=== PATIENT | female | born 1960 | race Native Hawaiian/Other Pacific Islander ===

== ENCOUNTER 2019-10-13 19:13 | Inpatient (IN) | payer MEDICARE, MEDICAID ==
[~2019-10-13] VITALS: Ht 165.1 cm; Wt 96.2 kg
[~2019-10-13 19:13] MED LIST: AML5T PO; APIX5TAB PO; ASPI81CH43 PO; CALC667C PO; CARV6.2551 PO; CINA30TA2 PO; GLIP5TAB12 PO; HYDR-4296 PO; SEVE800T8 PO
[2019-10-13] MEDS ORDERED: SUCCINYLCHOLINE CHLORIDE 20 MG/ML 10ML VIAL IV ONE (19:30)
[2019-10-13] MEDS ORDERED: EPINEPHrine HCL 1 MG/1 ML AMP ONE (19:33)
[2019-10-13] MEDS ORDERED: ATROPINE SULFATE 1 MG/1 ML VIAL ONE (19:33)
[2019-10-13] MEDS ORDERED: MIDAZOLAM DRIP 50 mg/50mL 50 ML IV ONE (19:40)
[2019-10-13] MEDS ORDERED: ATROPINE SULF 1 MG/10ml SYR IV ONE (19:45)
[2019-10-13] MEDS ORDERED: VANCOMYCIN 1GM/250ML 250 ML IV ONE (19:45)
[2019-10-13] MEDS ORDERED: EPINEPHrine HCL 1 MG/10 ML SYRG IV ONE (19:45)
[2019-10-13] MEDS ORDERED: cefTRIAXone SOD 1,000 MG VL IM ONE (19:45)
[2019-10-13] MEDS: MIDAZOLAM DRIP 50 mg/50mL 50 ML IV SCH (19:48)
[2019-10-13 19:52] LABS: Basophils # (auto) 0.1 10 ^3/uL (0-0.2); Basophils % (auto) 0.3 % (0.0-2.0); Eosinophils # (auto) 0.1 10 ^3/uL (0-0.8); Eosinophils % (auto) 0.7 % (0.0-7.0); Hemoglobin 8.4 g/dL (12.2-16.2); Lymphocytes # (auto) 4.1 10 ^3/uL (0.4-5.4); Lymphocytes % (auto) 20.4 % (10.0-50.0)
[2019-10-13 19:54] LABS: Mean Corpuscular Hemoglobin 30.1 pg (28.0-32.0); Mean Corpuscular Hgb Conc. 31.1 g/dL (32.0-36.0); Mean Corpuscular Volume 96.7 fL (80.0-100.0); Monocytes # (auto) 0.9 10 ^3/uL (0-1.3); Monocytes % (auto) 4.6 % (0.0-12.0); Neutrophils # (auto) 14.8 10 ^3/uL (1.6-8.6); Platelet Count (auto) 282 10^3/uL (140-450); Red Blood Cells 2.79 10^6/uL (4.0-5.20); Red Cell Distribution Width 14.1 % (11.8-14.3)
[2019-10-13 20:00] LABS: Albumin 2.1 g/dL (3.4-5.0); INR 1.11 (0.9-1.15); Magnesium 2.3 mg/dL (1.6-2.6); Partial Thromboplastin Time 28.3 sec (23.64-32.05)
[2019-10-13] MEDS ORDERED: cefTRIAXone 1GM/50ML D5W 50 ML IV ONE (20:00)
[2019-10-13] MEDS: NOREPINEPHRINE 8 MG/250ML KIT 250 ML IV SCH ×2 (20:03→22:38)
[2019-10-13 20:04] LABS: Lactic Acid w/Reflex 9.8 mmol/L (0.4-2.0)
[2019-10-13 20:06] LABS: BUN/Creatinine Ratio 4.5; Bilirubin, Total 0.6 mg/dL (0.2-1.0); Total Protein 7.2 g/dL (6.4-8.2)
[2019-10-13] MEDS ORDERED: NOREPINEPHRINE 8 MG/250ML KIT 250 ML IV ONE (20:08)
[2019-10-13 20:16] LABS: Potassium 5.6 mmol/L (3.5-5.1)
[2019-10-13] MEDS ORDERED: ACETAMINOPHEN 650 MG RECT SUPP PR ONE (21:00)
[2019-10-13] MEDS: DOPamine 1600MCG/ML D5W 250 ML IV SCH (21:04)
[2019-10-13 21:56] VITALS: BP 113/34
[2019-10-13] MEDS ORDERED: SODIUM CHLORIDE 0.9% 1,000 ML IV SCH (23:17)
[2019-10-13 23:27] LABS: Urine Bacteria MANY /hpf (None Seen); Urine WBC TNTC /hpf (0 - 5)
[2019-10-13 23:28] LABS: Urine Mucus FEW (None Seen)
[2019-10-13 23:29] LABS: Urine Specific Gravity 1.012 (1.001-1.035)
[2019-10-13] MEDS ORDERED: NITROGLYCERIN 0.4 MG SL TAB SL PRN (23:30)
[2019-10-13] MEDS ORDERED: DEXTROSE (50%) 50ML SYRG IV ONE (23:30)
[2019-10-13] MEDS ORDERED: VANCOMYCIN PER PHARMACY 0 MG IV SCH (23:30)
[2019-10-13] MEDS ORDERED: MORPHINE SULF INJ 2 MG/ML SYRINGE 1ML IV PRN (23:30)
[2019-10-13] MEDS ORDERED: CALCIUM GLUC 4.65meq/50ml D5AE 50 ML IV ONE (23:30)
[2019-10-13] MEDS ORDERED: InsuLIN REG 1unit/0.01ml Soln (100units/ml) IV ONE (23:30)
[2019-10-13] MEDS ORDERED: SODIUM BICARBONATE 8.4 % INJ 50ML VIAL IV ONE (23:30)
[2019-10-13] MEDS ORDERED: PIPERACILLIN-TAZOB 2.25GM 0.75 GM in D5W 5% 50 ML IV SCH (23:30)
[2019-10-13] MEDS ORDERED: DEXTROSE (50%) 50ML SYRG IV PRN (23:30)
[2019-10-13] MEDS ORDERED: ONDANSETRON HCL 4 MG/2 ML VIAL IV PRN (23:30)
[2019-10-13] MEDS ORDERED: SODIUM ZIRCONIUM CYCL 10 GM PAK PO ONE (23:30)
[2019-10-13] MEDS ORDERED: ACETAMINOPHEN 325 MG TAB PO PRN (23:30)
[2019-10-13 23:31] LABS: Urine Blood 1+ /uL (Negative)
[2019-10-13 23:51] VITALS: BP 132/54
[2019-10-14] VITALS (65 sets, daily range): BP systolic 72–151; BP diastolic 21–66
[2019-10-14 01:04] LABS: CRP High Sensitivity 7.36 mg/dL (< 0.3)
[2019-10-14] MEDS: ACCU-CHEK COMFORT CURVE STRIP VI SCH ×5 (03:51→23:01)
[2019-10-14] MEDS ORDERED: SODIUM CHLORIDE 0.9% 1,000 ML IV ONE (04:15)
[2019-10-14 05:57] LABS: Basophils # (auto) 0 10 ^3/uL (0-0.2); Basophils % (auto) 0.3 % (0.0-2.0); Eosinophils # (auto) 0 10 ^3/uL (0-0.8); Eosinophils % (auto) 0.2 % (0.0-7.0); Hematocrit 27.1 % (36.0-46.0); Hemoglobin 8.8 g/dL (12.2-16.2); Lymphocytes # (auto) 1.1 10 ^3/uL (0.4-5.4); Lymphocytes % (auto) 9.3 % (10.0-50.0); Mean Corpuscular Hemoglobin 30.9 pg (28.0-32.0); Mean Corpuscular Hgb Conc. 32.4 g/dL (32.0-36.0); Mean Corpuscular Volume 95.5 fL (80.0-100.0); Monocytes # (auto) 0.9 10 ^3/uL (0-1.3); Monocytes % (auto) 7.9 % (0.0-12.0); Neutrophils # (auto) 9.8 10 ^3/uL (1.6-8.6); Neutrophils % (auto) 82.3 % (37.0-80.0); Platelet Count (auto) 222 10^3/uL (140-450); Red Blood Cells 2.84 10^6/uL (4.0-5.20); Red Cell Distribution Width 14.1 % (11.8-14.3); White Blood Cell 11.9 10^3/uL (4.4-10.8)
[2019-10-14] MEDS ORDERED: ALBUTEROL SULF HFA 90MCG INH 200DOSE IN SCH (06:00)
[2019-10-14 06:03] LABS: Albumin 2.2 g/dL (3.4-5.0); Calcium 8.1 mg/dL (8.5-10.1); Potassium 5.4 mmol/L (3.5-5.1)
[2019-10-14 06:08] LABS: BUN/Creatinine Ratio 4.9; Bilirubin, Total 0.5 mg/dL (0.2-1.0); Total Protein 7.7 g/dL (6.4-8.2)
[2019-10-14] MEDS: InsuLIN REG 1unit/0.01ml Soln (100units/ml) SC SCH ×5 (06:20→22:59)
[2019-10-14] MEDS: DOPamine 1600MCG/ML D5W 250 ML IV SCH ×2 (08:26→18:53)
[2019-10-14] MEDS ORDERED: VANCOMYCIN 1GM/250ML 250 ML IV ONE (09:00)
[2019-10-14] MEDS: PIPERACILLIN-TAZOB 2.25GM 50 ML IV SCH ×2 (11:05→21:18)
[2019-10-14] MEDS: PANTOPRAZOLE 40 MG/10 ML VIAL INJ IV SCH (11:05)
[2019-10-14] MEDS ORDERED: SODIUM CHL 0.9% 1000 ML BAG XX ONE (12:00)
[2019-10-14] MEDS: MIDAZOLAM DRIP 50 mg/50mL 50 ML IV SCH ×2 (15:39→20:56)
[2019-10-14] MEDS ORDERED: IOHEXOL 350 MG/ML 100ML IJ ONE (16:42)
[2019-10-14] MEDS ORDERED: VANCOMYCIN 500 MG in D5W 5% 100 ML IV ONE (21:00)
[2019-10-14] MEDS ORDERED: EPOETIN ALFA 10,000 UNIT/1 ML VIAL SC ONE (21:00)
[2019-10-14] MEDS: DexMEDEtomidine 400 MCG in D5W 5% 96 ML IV SCH (21:08)
[2019-10-15] VITALS (98 sets, daily range): BP systolic 86–141; BP diastolic 25–59
[2019-10-15] MEDS: ACCU-CHEK COMFORT CURVE STRIP VI SCH ×4 (03:56→23:59)
[2019-10-15 04:20] LABS: Basophils # (auto) 0.1 10 ^3/uL (0-0.2); Basophils % (auto) 0.5 % (0.0-2.0); Eosinophils # (auto) 0.2 10 ^3/uL (0-0.8); Eosinophils % (auto) 1.6 % (0.0-7.0); Hematocrit 26.7 % (36.0-46.0); Hemoglobin 8.8 g/dL (12.2-16.2); Lymphocytes # (auto) 1.3 10 ^3/uL (0.4-5.4); Lymphocytes % (auto) 10.7 % (10.0-50.0); Mean Corpuscular Hemoglobin 30.2 pg (28.0-32.0); Mean Corpuscular Hgb Conc. 32.8 g/dL (32.0-36.0); Mean Corpuscular Volume 92.3 fL (80.0-100.0); Monocytes # (auto) 0.8 10 ^3/uL (0-1.3); Monocytes % (auto) 6.3 % (0.0-12.0); Neutrophils % (auto) 80.9 % (37.0-80.0); Nucleated Red Blood Cells % 0.1 %; Platelet Count (auto) 257 10^3/uL (140-450); Red Blood Cells 2.89 10^6/uL (4.0-5.20); Red Cell Distribution Width 14.3 % (11.8-14.3); White Blood Cell 12.3 10^3/uL (4.4-10.8)
[2019-10-15 04:27] LABS: Potassium 4.1 mmol/L (3.5-5.1)
[2019-10-15 04:37] LABS: BUN/Creatinine Ratio 4.3; Bilirubin, Total 0.5 mg/dL (0.2-1.0); Magnesium 2.1 mg/dL (1.6-2.6); Phosphorus 3.8 mg/dL (2.5-4.90); Total Protein 7.3 g/dL (6.4-8.2)
[2019-10-15] MEDS: InsuLIN REG 1unit/0.01ml Soln (100units/ml) SC SCH ×4 (05:15→23:59)
[2019-10-15] MEDS: DOPamine 1600MCG/ML D5W 250 ML IV SCH (09:05)
[2019-10-15] MEDS: PIPERACILLIN-TAZOB 2.25GM 50 ML IV SCH ×2 (11:08→21:53)
[2019-10-15] MEDS: PANTOPRAZOLE 40 MG/10 ML VIAL INJ IV SCH (11:08)
[2019-10-15] MEDS: ENOXAPARIN SOD 30 MG/0.3 ML SYRINGE SC SCH (11:08)
[2019-10-15] MEDS ORDERED: SEVE800T8 PO (13:21)
[2019-10-15] MEDS ORDERED: CARV6.2551 PO (13:21)
[2019-10-15] MEDS ORDERED: GABA100C9 PO (13:23)
[2019-10-15] MEDS: DexMEDEtomidine 400 MCG in D5W 5% 96 ML IV SCH (15:20)
[2019-10-15] MEDS ORDERED: fentaNYL Drip 2500mCg/250mlNS 250 ML IV SCH (19:00)
[2019-10-16] VITALS (66 sets, daily range): BP systolic 76–151; BP diastolic 20–74
[2019-10-16 04:22] LABS: INR 1.19 (0.9-1.15); Partial Thromboplastin Time 28.2 sec (23.64-32.05)
[2019-10-16 04:32] LABS: BUN/Creatinine Ratio 4.8; Calcium 7.9 mg/dL (8.5-10.1); Potassium 4.5 mmol/L (3.5-5.1)
[2019-10-16 04:35] LABS: Bilirubin, Total 0.4 mg/dL (0.2-1.0); Total Protein 7.1 g/dL (6.4-8.2)
[2019-10-16 04:39] LABS: Basophils # (auto) 0 10 ^3/uL (0-0.2); Eosinophils # (auto) 0.2 10 ^3/uL (0-0.8); Eosinophils % (auto) 2.1 % (0.0-7.0); Lymphocytes # (auto) 1.1 10 ^3/uL (0.4-5.4); Monocytes # (auto) 0.7 10 ^3/uL (0-1.3); Neutrophils % (auto) 78.2 % (37.0-80.0); Nucleated Red Blood Cells % 0.2 %
[2019-10-16 04:41] LABS: Basophils % (auto) 0.3 % (0.0-2.0); Hematocrit 24.1 % (36.0-46.0); Lymphocytes % (auto) 11.4 % (10.0-50.0); Mean Corpuscular Hemoglobin 30.5 pg (28.0-32.0); Mean Corpuscular Volume 92.5 fL (80.0-100.0); Neutrophils # (auto) 7.3 10 ^3/uL (1.6-8.6); Platelet Count (auto) 235 10^3/uL (140-450); Red Cell Distribution Width 14.4 % (11.8-14.3); White Blood Cell 9.4 10^3/uL (4.4-10.8)
[2019-10-16] MEDS: ACCU-CHEK COMFORT CURVE STRIP VI SCH ×4 (05:35→23:46)
[2019-10-16] MEDS: InsuLIN REG 1unit/0.01ml Soln (100units/ml) SC SCH ×4 (05:37→23:48)
[2019-10-16] MEDS ORDERED: NOREPINEPHRINE 8 MG/250ML KIT 250 ML IV ONE (08:12)
[2019-10-16] MEDS: NOREPINEPHRINE 8 MG/250ML KIT 250 ML IV SCH (08:15)
[2019-10-16] MEDS: PANTOPRAZOLE 40 MG/10 ML VIAL INJ IV SCH (10:15)
[2019-10-16] MEDS: PIPERACILLIN-TAZOB 2.25GM 50 ML IV SCH (10:16)
[2019-10-16] MEDS: ENOXAPARIN SOD 30 MG/0.3 ML SYRINGE SC SCH (10:16)
[2019-10-16] MEDS ORDERED: VANCOMYCIN 1GM/250ML 250 ML IV ONE (16:00)
[2019-10-16] MEDS ORDERED: EPOETIN ALFA 10,000 UNIT/1 ML VIAL SC ONE (21:00)
[2019-10-16] MEDS ORDERED: MEROPENEM 500MG IVPB 50 ML IV ONE (21:00)
[2019-10-17] VITALS (78 sets, daily range): BP systolic 80–158; BP diastolic 33–66
[2019-10-17 04:48] LABS: Potassium 3.9 mmol/L (3.5-5.1)
[2019-10-17 04:50] LABS: Magnesium 2.1 mg/dL (1.6-2.6)
[2019-10-17] MEDS: InsuLIN REG 1unit/0.01ml Soln (100units/ml) SC SCH ×3 (05:33→17:37)
[2019-10-17] MEDS: ACCU-CHEK COMFORT CURVE STRIP VI SCH ×3 (05:34→17:38)
[2019-10-17] MEDS: NOREPINEPHRINE 8 MG/250ML KIT 250 ML IV SCH (06:55)
[2019-10-17] MEDS: ENOXAPARIN SOD 30 MG/0.3 ML SYRINGE SC SCH (09:55)
[2019-10-17] MEDS: PANTOPRAZOLE 40 MG/10 ML VIAL INJ IV SCH (09:55)
[2019-10-17] MEDS: MEROPENEM 500MG IVPB 50 ML IV SCH (09:59)
[2019-10-18] VITALS (82 sets, daily range): BP systolic 83–171; BP diastolic 39–80
[2019-10-18] MEDS: InsuLIN REG 1unit/0.01ml Soln (100units/ml) SC SCH ×5 (00:21→23:40)
[2019-10-18 04:35] LABS: Basophils # (auto) 0 10 ^3/uL (0-0.2); Basophils % (auto) 0.4 % (0.0-2.0); Eosinophils # (auto) 0.2 10 ^3/uL (0-0.8); Eosinophils % (auto) 2.3 % (0.0-7.0); Hematocrit 25.4 % (36.0-46.0); Hemoglobin 8.4 g/dL (12.2-16.2); Lymphocytes # (auto) 0.9 10 ^3/uL (0.4-5.4); Lymphocytes % (auto) 12.1 % (10.0-50.0); Mean Corpuscular Hemoglobin 30.6 pg (28.0-32.0); Mean Corpuscular Hgb Conc. 32.9 g/dL (32.0-36.0); Mean Corpuscular Volume 93.1 fL (80.0-100.0); Monocytes # (auto) 0.5 10 ^3/uL (0-1.3); Monocytes % (auto) 7.1 % (0.0-12.0); Neutrophils # (auto) 5.7 10 ^3/uL (1.6-8.6); Neutrophils % (auto) 78.1 % (37.0-80.0); Nucleated Red Blood Cells % 0.1 %; Platelet Count (auto) 244 10^3/uL (140-450); Red Blood Cells 2.73 10^6/uL (4.0-5.20); Red Cell Distribution Width 14.4 % (11.8-14.3); White Blood Cell 7.3 10^3/uL (4.4-10.8)
[2019-10-18 04:51] LABS: Albumin 2.2 g/dL (3.4-5.0); Calcium 8.4 mg/dL (8.5-10.1); Magnesium 2.4 mg/dL (1.6-2.6); Potassium 4.1 mmol/L (3.5-5.1)
[2019-10-18 04:55] LABS: Bilirubin, Total 0.6 mg/dL (0.2-1.0); Total Protein 7.4 g/dL (6.4-8.2)
[2019-10-18] MEDS: ACCU-CHEK COMFORT CURVE STRIP VI SCH ×5 (06:01→23:40)
[2019-10-18] MEDS: NOREPINEPHRINE 8 MG/250ML KIT 250 ML IV SCH (08:19)
[2019-10-18] MEDS: MEROPENEM 500MG IVPB 50 ML IV SCH (10:28)
[2019-10-18] MEDS: ENOXAPARIN SOD 30 MG/0.3 ML SYRINGE SC SCH (10:28)
[2019-10-18] MEDS: PANTOPRAZOLE 40 MG/10 ML VIAL INJ IV SCH (10:28)
[2019-10-18] MEDS ORDERED: ENOXAPARIN SOD 60 MG/0.6 ML SYRINGE SC ONE (12:15)
[2019-10-19] VITALS (69 sets, daily range): BP systolic 96–187; BP diastolic 50–79
[2019-10-19 04:42] LABS: Hematocrit 25.7 % (36.0-46.0); Hemoglobin 8.5 g/dL (12.2-16.2)
[2019-10-19 04:58] LABS: % Iron Saturation 21.6 % (15-50)
[2019-10-19 05:00] LABS: Calcium 8.4 mg/dL (8.5-10.1); Potassium 4.4 mmol/L (3.5-5.1)
[2019-10-19 05:03] LABS: BUN/Creatinine Ratio 5.6
[2019-10-19] MEDS: ACCU-CHEK COMFORT CURVE STRIP VI SCH ×4 (05:22→23:40)
[2019-10-19] MEDS: InsuLIN REG 1unit/0.01ml Soln (100units/ml) SC SCH ×4 (05:24→23:40)
[2019-10-19] MEDS ORDERED: SODIUM CHL 0.9% 1000 ML BAG XX ONE (07:00)
[2019-10-19] MEDS: NOREPINEPHRINE 8 MG/250ML KIT 250 ML IV SCH (08:19)
[2019-10-19] MEDS ORDERED: ENOXAPARIN SOD 100 MG/1 ML SYRINGE SC SCH (10:00)
[2019-10-19] MEDS: PANTOPRAZOLE 40 MG/10 ML VIAL INJ IV SCH (15:59)
[2019-10-19] MEDS: MEROPENEM 500MG IVPB 50 ML IV SCH (15:59)
[2019-10-19] MEDS ORDERED: VANCOMYCIN 1GM/250ML 250 ML IV ONE (16:00)
[2019-10-19] MEDS ORDERED: EPOETIN ALFA 10,000 UNIT/1 ML VIAL SC ONE (21:00)
[2019-10-19] MEDS ORDERED: hydrALAZINE HCL 20 MG/ML VL IV ONE (23:00)
[2019-10-20] VITALS (102 sets, daily range): BP systolic 89–196; BP diastolic 43–76
[2019-10-20 04:32] LABS: Hematocrit 27.2 % (36.0-46.0); Hemoglobin 8.9 g/dL (12.2-16.2); Mean Corpuscular Hemoglobin 30.5 pg (28.0-32.0); Mean Corpuscular Hgb Conc. 32.9 g/dL (32.0-36.0); Mean Corpuscular Volume 92.9 fL (80.0-100.0); Platelet Count (auto) 306 10^3/uL (140-450); Red Blood Cells 2.93 10^6/uL (4.0-5.20); Red Cell Distribution Width 14.5 % (11.8-14.3); White Blood Cell 8.4 10^3/uL (4.4-10.8)
[2019-10-20 04:38] LABS: Basophils % (auto) 0.5 % (0.0-2.0); Lymphocytes # (auto) 1.2 10 ^3/uL (0.4-5.4); Lymphocytes % (auto) 14.3 % (10.0-50.0); Monocytes % (auto) 9.5 % (0.0-12.0); Neutrophils # (auto) 6.2 10 ^3/uL (1.6-8.6); Neutrophils % (auto) 73.7 % (37.0-80.0); Nucleated Red Blood Cells % 0.1 %
[2019-10-20 04:39] LABS: Basophils # (auto) 0 10 ^3/uL (0-0.2); Eosinophils # (auto) 0.2 10 ^3/uL (0-0.8); Monocytes # (auto) 0.8 10 ^3/uL (0-1.3)
[2019-10-20 04:42] LABS: Calcium 8.7 mg/dL (8.5-10.1); Potassium 4.1 mmol/L (3.5-5.1)
[2019-10-20 04:44] LABS: BUN/Creatinine Ratio 5.6
[2019-10-20] MEDS: ACCU-CHEK COMFORT CURVE STRIP VI SCH ×4 (05:30→23:34)
[2019-10-20] MEDS: InsuLIN REG 1unit/0.01ml Soln (100units/ml) SC SCH ×4 (05:31→23:35)
[2019-10-20] MEDS: MEROPENEM 500MG IVPB 50 ML IV SCH (10:02)
[2019-10-20] MEDS: PANTOPRAZOLE 40 MG/10 ML VIAL INJ IV SCH (10:02)
[2019-10-20] MEDS: ENOXAPARIN SOD 120 MG/0.8 ML SYRINGE SC SCH (10:10)
[2019-10-20] MEDS ORDERED: hydrALAZINE HCL 20 MG/ML VL IV ONE (21:45)
[2019-10-21] VITALS (105 sets, daily range): BP systolic 85–191; BP diastolic 43–107
[2019-10-21 04:07] LABS: Basophils # (auto) 0 10 ^3/uL (0-0.2); Basophils % (auto) 0.4 % (0.0-2.0); Eosinophils # (auto) 0.1 10 ^3/uL (0-0.8); Eosinophils % (auto) 0.7 % (0.0-7.0); Hematocrit 29.9 % (36.0-46.0); Hemoglobin 9.7 g/dL (12.2-16.2); Lymphocytes # (auto) 1.4 10 ^3/uL (0.4-5.4); Lymphocytes % (auto) 11.3 % (10.0-50.0); Mean Corpuscular Hemoglobin 30.3 pg (28.0-32.0); Mean Corpuscular Hgb Conc. 32.4 g/dL (32.0-36.0); Mean Corpuscular Volume 93.6 fL (80.0-100.0); Monocytes % (auto) 8.2 % (0.0-12.0); Neutrophils # (auto) 9.8 10 ^3/uL (1.6-8.6); Neutrophils % (auto) 79.4 % (37.0-80.0); Platelet Count (auto) 340 10^3/uL (140-450); Red Cell Distribution Width 15.2 % (11.8-14.3); White Blood Cell 12.3 10^3/uL (4.4-10.8)
[2019-10-21 04:12] LABS: % Iron Saturation 12.4 % (15-50)
[2019-10-21 04:14] LABS: BUN/Creatinine Ratio 6.5; Calcium 9.4 mg/dL (8.5-10.1); Potassium 4.9 mmol/L (3.5-5.1)
[2019-10-21] MEDS: ACCU-CHEK COMFORT CURVE STRIP VI SCH ×4 (06:28→23:59)
[2019-10-21] MEDS: InsuLIN REG 1unit/0.01ml Soln (100units/ml) SC SCH ×3 (06:29→18:01)
[2019-10-21] MEDS ORDERED: SODIUM CHL 0.9% 1000 ML BAG XX ONE (07:00)
[2019-10-21] MEDS: ENOXAPARIN SOD 120 MG/0.8 ML SYRINGE SC SCH (10:00)
[2019-10-21] MEDS: MEROPENEM 500MG IVPB 50 ML IV SCH (10:09)
[2019-10-21] MEDS: PANTOPRAZOLE 40 MG/10 ML VIAL INJ IV SCH (10:09)
[2019-10-21] MEDS: hydrALAZINE HCL 20 MG/ML VL IV PRN (12:20)
[2019-10-21] MEDS ORDERED: EPOETIN ALFA 10,000 UNIT/1 ML VIAL SC ONE (21:00)
[2019-10-22] VITALS (92 sets, daily range): BP systolic 110–192; BP diastolic 36–82
[2019-10-22] MEDS: InsuLIN REG 1unit/0.01ml Soln (100units/ml) SC SCH ×4 (00:05→17:28)
[2019-10-22 04:09] LABS: Basophils # (auto) 0 10 ^3/uL (0-0.2); Basophils % (auto) 0.3 % (0.0-2.0); Eosinophils # (auto) 0.1 10 ^3/uL (0-0.8); Eosinophils % (auto) 1.2 % (0.0-7.0); Lymphocytes # (auto) 1.1 10 ^3/uL (0.4-5.4); Lymphocytes % (auto) 9.8 % (10.0-50.0); Mean Corpuscular Hemoglobin 30.2 pg (28.0-32.0); Mean Corpuscular Hgb Conc. 32.2 g/dL (32.0-36.0); Mean Corpuscular Volume 93.8 fL (80.0-100.0); Monocytes # (auto) 0.9 10 ^3/uL (0-1.3); Monocytes % (auto) 7.4 % (0.0-12.0); Neutrophils # (auto) 9.5 10 ^3/uL (1.6-8.6); Neutrophils % (auto) 81.3 % (37.0-80.0); Platelet Count (auto) 356 10^3/uL (140-450); Red Blood Cells 3.31 10^6/uL (4.0-5.20); Red Cell Distribution Width 15.5 % (11.8-14.3); White Blood Cell 11.7 10^3/uL (4.4-10.8)
[2019-10-22 04:20] LABS: INR 1.28 (0.9-1.15)
[2019-10-22 04:24] LABS: BUN/Creatinine Ratio 6.1; Calcium 9.5 mg/dL (8.5-10.1); Potassium 4.8 mmol/L (3.5-5.1)
[2019-10-22] MEDS: ACCU-CHEK COMFORT CURVE STRIP VI SCH ×3 (05:58→17:28)
[2019-10-22] MEDS: hydrALAZINE HCL 20 MG/ML VL IV PRN (06:07)
[2019-10-22] MEDS: ENOXAPARIN SOD 120 MG/0.8 ML SYRINGE SC SCH (09:58)
[2019-10-22] MEDS: PANTOPRAZOLE 40 MG/10 ML VIAL INJ IV SCH (09:58)
[2019-10-22] MEDS: MEROPENEM 500MG IVPB 50 ML IV SCH (09:58)
[2019-10-23] VITALS (70 sets, daily range): BP systolic 82–191; BP diastolic 32–84
[2019-10-23] MEDS: InsuLIN REG 1unit/0.01ml Soln (100units/ml) SC SCH ×4 (00:31→17:19)
[2019-10-23] MEDS: hydrALAZINE HCL 20 MG/ML VL IV PRN (02:16)
[2019-10-23 04:04] LABS: Hematocrit 33.1 % (36.0-46.0); Hemoglobin 10.4 g/dL (12.2-16.2)
[2019-10-23 04:53] LABS: % Iron Saturation 11.3 % (15-50)
[2019-10-23] MEDS: ACCU-CHEK COMFORT CURVE STRIP VI SCH ×4 (05:41→17:19)
[2019-10-23] MEDS ORDERED: SODIUM CHL 0.9% 1000 ML BAG XX ONE (07:00)
[2019-10-23 09:35] LABS: Basophils # (auto) 0.1 10 ^3/uL (0-0.2); Basophils % (auto) 0.7 % (0.0-2.0); Eosinophils # (auto) 0.1 10 ^3/uL (0-0.8); Eosinophils % (auto) 0.5 % (0.0-7.0); Hematocrit 34.7 % (36.0-46.0); Hemoglobin 10.8 g/dL (12.2-16.2); Lymphocytes # (auto) 0.7 10 ^3/uL (0.4-5.4); Lymphocytes % (auto) 4.3 % (10.0-50.0); Mean Corpuscular Hgb Conc. 31.2 g/dL (32.0-36.0); Mean Corpuscular Volume 93.1 fL (80.0-100.0); Monocytes % (auto) 6.5 % (0.0-12.0); Neutrophils # (auto) 14.2 10 ^3/uL (1.6-8.6); Platelet Count (auto) 382 10^3/uL (140-450); Red Blood Cells 3.73 10^6/uL (4.0-5.20); Red Cell Distribution Width 15.9 % (11.8-14.3); White Blood Cell 16.1 10^3/uL (4.4-10.8)
[2019-10-23 09:53] LABS: Albumin 2.7 g/dL (3.4-5.0); BUN/Creatinine Ratio 5.7; Calcium 8.9 mg/dL (8.5-10.1); Potassium 3.7 mmol/L (3.5-5.1)
[2019-10-23 09:57] LABS: Bilirubin, Total 1.2 mg/dL (0.2-1.0); Total Protein 8.8 g/dL (6.4-8.2)
[2019-10-23] MEDS: MEROPENEM 500MG IVPB 50 ML IV SCH (10:08)
[2019-10-23] MEDS: PANTOPRAZOLE 40 MG/10 ML VIAL INJ IV SCH (10:08)
[2019-10-23] MEDS: ENOXAPARIN SOD 120 MG/0.8 ML SYRINGE SC SCH (10:08)
[2019-10-23 15:01] LABS: Urine Bacteria FEW /hpf (None Seen); Urine Blood 1+ /uL (Negative); Urine WBC 93 /hpf (0 - 5); Urine WBC Clumps PRESENT /hpf (None Seen)
[2019-10-23 15:06] LABS: Urine Specific Gravity 1.023 (1.001-1.035)
[2019-10-23] MEDS ORDERED: VANCOMYCIN 500 MG in D5W 5% 100 ML IV ONE (17:00)
[2019-10-23] MEDS ORDERED: EPOETIN ALFA 10,000 UNIT/1 ML VIAL SC ONE (21:00)
[2019-10-24] VITALS (59 sets, daily range): BP systolic 85–177; BP diastolic 34–75
[2019-10-24] MEDS: ACCU-CHEK COMFORT CURVE STRIP VI SCH ×4 (00:15→17:51)
[2019-10-24] MEDS: Nepro With Carb Steady 1 Liter Bottle GT SCH (00:16)
[2019-10-24 04:17] LABS: Basophils # (auto) 0 10 ^3/uL (0-0.2); Basophils % (auto) 0.4 % (0.0-2.0); Eosinophils # (auto) 0.2 10 ^3/uL (0-0.8); Hematocrit 33.3 % (36.0-46.0); Hemoglobin 10.8 g/dL (12.2-16.2); Lymphocytes # (auto) 1.7 10 ^3/uL (0.4-5.4); Lymphocytes % (auto) 14.4 % (10.0-50.0); Mean Corpuscular Hemoglobin 30.6 pg (28.0-32.0); Mean Corpuscular Hgb Conc. 32.6 g/dL (32.0-36.0); Monocytes % (auto) 9.1 % (0.0-12.0); Neutrophils # (auto) 8.5 10 ^3/uL (1.6-8.6); Neutrophils % (auto) 74.1 % (37.0-80.0); Platelet Count (auto) 326 10^3/uL (140-450); Red Blood Cells 3.54 10^6/uL (4.0-5.20); Red Cell Distribution Width 16.2 % (11.8-14.3); White Blood Cell 11.5 10^3/uL (4.4-10.8)
[2019-10-24 04:49] LABS: Albumin 2.9 g/dL (3.4-5.0); BUN/Creatinine Ratio 6.6; Calcium 9.4 mg/dL (8.5-10.1); Magnesium 2.5 mg/dL (1.6-2.6); Potassium 4.2 mmol/L (3.5-5.1)
[2019-10-24 04:51] LABS: Bilirubin, Total 1.2 mg/dL (0.2-1.0); Total Protein 8.6 g/dL (6.4-8.2)
[2019-10-24] MEDS: InsuLIN REG 1unit/0.01ml Soln (100units/ml) SC SCH ×4 (06:29→17:57)
[2019-10-24] MEDS: hydrALAZINE HCL 20 MG/ML VL IV PRN (07:20)
[2019-10-24] MEDS: ENOXAPARIN SOD 120 MG/0.8 ML SYRINGE SC SCH (10:02)
[2019-10-24] MEDS: MEROPENEM 500MG IVPB 50 ML IV SCH (10:02)
[2019-10-24] MEDS: PANTOPRAZOLE 40 MG/10 ML VIAL INJ IV SCH (10:02)
[2019-10-25] VITALS (77 sets, daily range): BP systolic 10–152; BP diastolic 28–64
[2019-10-25 04:29] LABS: Basophils # (auto) 0 10 ^3/uL (0-0.2); Basophils % (auto) 0.3 % (0.0-2.0); Eosinophils # (auto) 0.2 10 ^3/uL (0-0.8); Eosinophils % (auto) 1.9 % (0.0-7.0); Lymphocytes # (auto) 1.4 10 ^3/uL (0.4-5.4); Lymphocytes % (auto) 12.5 % (10.0-50.0); Mean Corpuscular Hgb Conc. 33.4 g/dL (32.0-36.0); Monocytes # (auto) 0.8 10 ^3/uL (0-1.3); Monocytes % (auto) 7.7 % (0.0-12.0); Neutrophils # (auto) 8.4 10 ^3/uL (1.6-8.6); Neutrophils % (auto) 77.6 % (37.0-80.0); Platelet Count (auto) 297 10^3/uL (140-450); Red Blood Cells 3.23 10^6/uL (4.0-5.20); Red Cell Distribution Width 15.8 % (11.8-14.3); White Blood Cell 10.9 10^3/uL (4.4-10.8)
[2019-10-25 04:43] LABS: Potassium 4.1 mmol/L (3.5-5.1)
[2019-10-25 04:47] LABS: BUN/Creatinine Ratio 7.9; Calcium 8.9 mg/dL (8.5-10.1)
[2019-10-25] MEDS: ENOXAPARIN SOD 120 MG/0.8 ML SYRINGE SC SCH (09:51)
[2019-10-25] MEDS: MEROPENEM 500MG IVPB 50 ML IV SCH (09:51)
[2019-10-25] MEDS: PANTOPRAZOLE 40 MG/10 ML VIAL INJ IV SCH (09:51)
[2019-10-25] MEDS: ACCU-CHEK COMFORT CURVE STRIP VI SCH ×3 (11:56→17:50)
[2019-10-25] MEDS: InsuLIN REG 1unit/0.01ml Soln (100units/ml) SC SCH ×3 (11:59→17:50)
[2019-10-25] MEDS ORDERED: VANCOMYCIN 500 MG in D5W 5% 100 ML IV ONE (13:00)
[2019-10-25] MEDS: Nepro With Carb Steady 1 Liter Bottle GT SCH (19:18)
[2019-10-26] VITALS (38 sets, daily range): BP systolic 41–185; BP diastolic 30–94
[2019-10-26] MEDS: InsuLIN REG 1unit/0.01ml Soln (100units/ml) SC SCH ×5 (00:54→23:35)
[2019-10-26 03:58] LABS: Hematocrit 30.6 % (36.0-46.0); Hemoglobin 9.8 g/dL (12.2-16.2)
[2019-10-26 04:24] LABS: % Iron Saturation 10.3 % (15-50)
[2019-10-26] MEDS ORDERED: SUCCINYLCHOLINE CHLORIDE 20 MG/ML 10ML VIAL IV ONE ×2 (04:32→04:38)
[2019-10-26] MEDS ORDERED: ETOMIDATE (2MG/ML) 20ML VIAL IV ONE ×2 (04:32→04:37)
[2019-10-26] MEDS: ACCU-CHEK COMFORT CURVE STRIP VI SCH ×5 (06:27→23:35)
[2019-10-26] MEDS ORDERED: SODIUM CHL 0.9% 1000 ML BAG XX ONE (07:00)
[2019-10-26 07:42] LABS: Basophils # (auto) 0.1 10 ^3/uL (0-0.2); Basophils % (auto) 0.5 % (0.0-2.0); Eosinophils # (auto) 0.3 10 ^3/uL (0-0.8); Eosinophils % (auto) 2.7 % (0.0-7.0); Hematocrit 31.1 % (36.0-46.0); Hemoglobin 9.8 g/dL (12.2-16.2); Lymphocytes # (auto) 1.4 10 ^3/uL (0.4-5.4); Lymphocytes % (auto) 11.1 % (10.0-50.0); Mean Corpuscular Hemoglobin 29.8 pg (28.0-32.0); Mean Corpuscular Hgb Conc. 31.6 g/dL (32.0-36.0); Mean Corpuscular Volume 94.5 fL (80.0-100.0); Monocytes # (auto) 0.9 10 ^3/uL (0-1.3); Monocytes % (auto) 7.1 % (0.0-12.0); Neutrophils # (auto) 9.8 10 ^3/uL (1.6-8.6); Neutrophils % (auto) 78.6 % (37.0-80.0); Nucleated Red Blood Cells % 0.1 %; Platelet Count (auto) 287 10^3/uL (140-450); Red Cell Distribution Width 16.1 % (11.8-14.3); White Blood Cell 12.4 10^3/uL (4.4-10.8)
[2019-10-26 07:56] LABS: BUN/Creatinine Ratio 8.3; Calcium 9.2 mg/dL (8.5-10.1); Potassium 4.5 mmol/L (3.5-5.1)
[2019-10-26] MEDS: PANTOPRAZOLE 40 MG/10 ML VIAL INJ IV SCH (16:54)
[2019-10-26] MEDS: ENOXAPARIN SOD 120 MG/0.8 ML SYRINGE SC SCH (16:54)
[2019-10-26] MEDS ORDERED: VANCOMYCIN 500 MG in D5W 5% 100 ML IV ONE (18:00)
[2019-10-26] MEDS ORDERED: EPOETIN ALFA 10,000 UNIT/1 ML VIAL SC ONE (21:00)
[2019-10-26] MEDS: MEROPENEM 500MG IVPB 50 ML IV SCH (23:17)
[2019-10-27] VITALS (36 sets, daily range): BP systolic 88–173; BP diastolic 31–81
[2019-10-27] MEDS: hydrALAZINE HCL 20 MG/ML VL IV PRN (00:53)
[2019-10-27] MEDS: ACCU-CHEK COMFORT CURVE STRIP VI SCH ×3 (05:18→18:22)
[2019-10-27] MEDS: InsuLIN REG 1unit/0.01ml Soln (100units/ml) SC SCH ×3 (05:23→18:31)
[2019-10-27 06:12] LABS: Potassium 3.7 mmol/L (3.5-5.1)
[2019-10-27 06:21] LABS: BUN/Creatinine Ratio 7.2; Magnesium 2.6 mg/dL (1.6-2.6)
[2019-10-27 09:29] LABS: Basophils # (auto) 0 10 ^3/uL (0-0.2); Basophils % (auto) 0.3 % (0.0-2.0); Eosinophils # (auto) 0.3 10 ^3/uL (0-0.8); Eosinophils % (auto) 2.7 % (0.0-7.0); Hematocrit 31.1 % (36.0-46.0); Lymphocytes # (auto) 1.2 10 ^3/uL (0.4-5.4); Lymphocytes % (auto) 10.9 % (10.0-50.0); Mean Corpuscular Hemoglobin 30.1 pg (28.0-32.0); Mean Corpuscular Hgb Conc. 32.1 g/dL (32.0-36.0); Mean Corpuscular Volume 93.9 fL (80.0-100.0); Monocytes # (auto) 0.9 10 ^3/uL (0-1.3); Monocytes % (auto) 7.7 % (0.0-12.0); Neutrophils # (auto) 8.9 10 ^3/uL (1.6-8.6); Neutrophils % (auto) 78.4 % (37.0-80.0); Platelet Count (auto) 278 10^3/uL (140-450); Red Blood Cells 3.31 10^6/uL (4.0-5.20); Red Cell Distribution Width 16.1 % (11.8-14.3); White Blood Cell 11.4 10^3/uL (4.4-10.8)
[2019-10-27] MEDS: ENOXAPARIN SOD 120 MG/0.8 ML SYRINGE SC SCH (10:44)
[2019-10-27] MEDS: PANTOPRAZOLE 40 MG/10 ML VIAL INJ IV SCH (10:44)
[2019-10-27] MEDS: MEROPENEM 500MG IVPB 50 ML IV SCH (11:10)
[2019-10-27 17:38] LABS: INR 1.08 (0.9-1.15); Partial Thromboplastin Time 41.4 sec (23.64-32.05)
[2019-10-28] VITALS (67 sets, daily range): BP systolic 65–191; BP diastolic 14–75
[2019-10-28] MEDS: InsuLIN REG 1unit/0.01ml Soln (100units/ml) SC SCH ×4 (00:41→17:47)
[2019-10-28 04:14] LABS: Basophils # (auto) 0 10 ^3/uL (0-0.2); Basophils % (auto) 0.3 % (0.0-2.0); Eosinophils # (auto) 0.3 10 ^3/uL (0-0.8); Eosinophils % (auto) 2.9 % (0.0-7.0); Hematocrit 29.4 % (36.0-46.0); Hemoglobin 9.4 g/dL (12.2-16.2); Lymphocytes # (auto) 1.3 10 ^3/uL (0.4-5.4); Mean Corpuscular Volume 93.5 fL (80.0-100.0); Monocytes % (auto) 8.5 % (0.0-12.0); Neutrophils # (auto) 8.5 10 ^3/uL (1.6-8.6); Neutrophils % (auto) 76.3 % (37.0-80.0); Nucleated Red Blood Cells % 0.1 %; Platelet Count (auto) 256 10^3/uL (140-450); Red Blood Cells 3.14 10^6/uL (4.0-5.20); White Blood Cell 11.2 10^3/uL (4.4-10.8)
[2019-10-28 04:32] LABS: Potassium 4.5 mmol/L (3.5-5.1)
[2019-10-28 04:40] LABS: Albumin 2.3 g/dL (3.4-5.0); BUN/Creatinine Ratio 8.6; Bilirubin, Total 0.6 mg/dL (0.2-1.0); Calcium 8.8 mg/dL (8.5-10.1); Total Protein 7.3 g/dL (6.4-8.2)
[2019-10-28] MEDS: ACCU-CHEK COMFORT CURVE STRIP VI SCH ×4 (06:00→17:43)
[2019-10-28] MEDS ORDERED: SODIUM CHL 0.9% 1000 ML BAG XX ONE (07:00)
[2019-10-28] MEDS ORDERED: levoFLOXacin 750MG 150 ML IV ONE (09:30)
[2019-10-28] MEDS: PANTOPRAZOLE 40 MG/10 ML VIAL INJ IV SCH (09:44)
[2019-10-28] MEDS: MEROPENEM 500MG IVPB 50 ML IV SCH (09:44)
[2019-10-28] MEDS: NOREPINEPHRINE 8 MG/250ML KIT 250 ML IV SCH (11:45)
[2019-10-28] MEDS ORDERED: CALCIUM GLUC 4.65meq/50ml D5AE 50 ML IV ONE ×2 (13:16→13:30)
[2019-10-28] MEDS ORDERED: SODIUM CHLORIDE 0.9% 1,000 ML IV ONE (13:30)
[2019-10-28] MEDS ORDERED: VANCOMYCIN 500 MG in D5W 5% 100 ML IV ONE (18:00)
[2019-10-28] MEDS: Nepro With Carb Steady 1 Liter Bottle GT SCH (19:45)
[2019-10-28] MEDS ORDERED: EPOETIN ALFA 10,000 UNIT/1 ML VIAL SC ONE (21:00)
[2019-10-28] MEDS: hydrALAZINE HCL 20 MG/ML VL IV PRN (21:11)
[2019-10-29] VITALS (110 sets, daily range): BP systolic 75–170; BP diastolic 15–58
[2019-10-29] MEDS: InsuLIN REG 1unit/0.01ml Soln (100units/ml) SC SCH ×5 (00:01→23:38)
[2019-10-29] MEDS: NOREPINEPHRINE 8 MG/250ML KIT 250 ML IV SCH ×2 (01:23→19:55)
[2019-10-29] MEDS: ACCU-CHEK COMFORT CURVE STRIP VI SCH ×5 (05:45→23:35)
[2019-10-29 05:57] LABS: Basophils # (auto) 0.1 10 ^3/uL (0-0.2); Basophils % (auto) 0.5 % (0.0-2.0); Eosinophils # (auto) 0.2 10 ^3/uL (0-0.8); Eosinophils % (auto) 1.9 % (0.0-7.0); Hematocrit 28.1 % (36.0-46.0); Hemoglobin 9.2 g/dL (12.2-16.2); Lymphocytes % (auto) 9.6 % (10.0-50.0); Mean Corpuscular Hemoglobin 30.7 pg (28.0-32.0); Mean Corpuscular Hgb Conc. 32.7 g/dL (32.0-36.0); Mean Corpuscular Volume 93.8 fL (80.0-100.0); Monocytes # (auto) 1.1 10 ^3/uL (0-1.3); Monocytes % (auto) 10.1 % (0.0-12.0); Neutrophils # (auto) 8.4 10 ^3/uL (1.6-8.6); Neutrophils % (auto) 77.9 % (37.0-80.0); Nucleated Red Blood Cells % 0.1 %; Platelet Count (auto) 246 10^3/uL (140-450); Red Cell Distribution Width 16.1 % (11.8-14.3); White Blood Cell 10.8 10^3/uL (4.4-10.8)
[2019-10-29 06:27] LABS: BUN/Creatinine Ratio 8.9; Calcium 9.1 mg/dL (8.5-10.1); Magnesium 2.9 mg/dL (1.6-2.6)
[2019-10-29] MEDS: PANTOPRAZOLE 40 MG/10 ML VIAL INJ IV SCH (09:42)
[2019-10-29] MEDS: MEROPENEM 500MG IVPB 50 ML IV SCH (09:43)
[2019-10-29] MEDS ORDERED: AMIODARONE HCL (50 MG/ ML) 3 ML VIAL IV ONE (13:14)
[2019-10-29] MEDS ORDERED: SODIUM BICARBONATE 8.4% INJ 50ML SYRINGE IV ONE (13:14)
[2019-10-29] MEDS ORDERED: EPINEPHrine HCL 1 MG/10 ML SYRG IV ONE (13:14)
[2019-10-29] MEDS: Nepro With Carb Steady 1 Liter Bottle GT SCH (16:04)
[2019-10-29] MEDS: levoFLOXacin 500MG 100 ML IV SCH (17:29)
[2019-10-30] VITALS (108 sets, daily range): BP systolic 79–270; BP diastolic 15–189
[2019-10-30 03:59] LABS: Basophils # (auto) 0 10 ^3/uL (0-0.2); Basophils % (auto) 0.4 % (0.0-2.0); Eosinophils # (auto) 0.4 10 ^3/uL (0-0.8); Eosinophils % (auto) 4.2 % (0.0-7.0); Hematocrit 25.6 % (36.0-46.0); Hemoglobin 8.6 g/dL (12.2-16.2); Lymphocytes # (auto) 1.6 10 ^3/uL (0.4-5.4); Mean Corpuscular Hemoglobin 31.1 pg (28.0-32.0); Mean Corpuscular Hgb Conc. 33.4 g/dL (32.0-36.0); Mean Corpuscular Volume 92.9 fL (80.0-100.0); Monocytes % (auto) 9.4 % (0.0-12.0); Neutrophils # (auto) 7.1 10 ^3/uL (1.6-8.6); Nucleated Red Blood Cells % 0.1 %; Platelet Count (auto) 234 10^3/uL (140-450); Red Blood Cells 2.76 10^6/uL (4.0-5.20); Red Cell Distribution Width 16.3 % (11.8-14.3); White Blood Cell 10.2 10^3/uL (4.4-10.8)
[2019-10-30 04:28] LABS: BUN/Creatinine Ratio 9.4; Calcium 9.4 mg/dL (8.5-10.1); Potassium 4.9 mmol/L (3.5-5.1)
[2019-10-30] MEDS: ACCU-CHEK COMFORT CURVE STRIP VI SCH ×4 (05:35→23:29)
[2019-10-30] MEDS: InsuLIN REG 1unit/0.01ml Soln (100units/ml) SC SCH ×4 (05:36→23:32)
[2019-10-30] MEDS ORDERED: SODIUM CHL 0.9% 1000 ML BAG XX ONE (07:00)
[2019-10-30] MEDS: PANTOPRAZOLE 40 MG/10 ML VIAL INJ IV SCH (10:00)
[2019-10-30] MEDS ORDERED: Nepro With Carb Steady 1 Liter Bottle GT SCH (15:30)
[2019-10-30] MEDS ORDERED: VANCOMYCIN 500 MG in D5W 5% 100 ML IV ONE (18:00)
[2019-10-30] MEDS: MEROPENEM 500MG IVPB 50 ML IV SCH (20:00)
[2019-10-30] MEDS ORDERED: EPOETIN ALFA 10,000 UNIT/1 ML VIAL SC ONE (21:00)
[2019-10-31] VITALS (72 sets, daily range): BP systolic 83–174; BP diastolic 37–64
[2019-10-31 05:16] LABS: Basophils # (auto) 0.1 10 ^3/uL (0-0.2); Basophils % (auto) 0.8 % (0.0-2.0); Eosinophils # (auto) 0.3 10 ^3/uL (0-0.8); Eosinophils % (auto) 3.2 % (0.0-7.0); Hemoglobin 9.9 g/dL (12.2-16.2); Lymphocytes # (auto) 1.2 10 ^3/uL (0.4-5.4); Lymphocytes % (auto) 11.6 % (10.0-50.0); Mean Corpuscular Hemoglobin 31.6 pg (28.0-32.0); Mean Corpuscular Volume 92.9 fL (80.0-100.0); Monocytes # (auto) 0.9 10 ^3/uL (0-1.3); Neutrophils # (auto) 7.7 10 ^3/uL (1.6-8.6); Neutrophils % (auto) 75.4 % (37.0-80.0); Platelet Count (auto) 235 10^3/uL (140-450); Red Blood Cells 3.13 10^6/uL (4.0-5.20); Red Cell Distribution Width 15.9 % (11.8-14.3); White Blood Cell 10.2 10^3/uL (4.4-10.8)
[2019-10-31] MEDS: ACCU-CHEK COMFORT CURVE STRIP VI SCH ×4 (05:16→23:34)
[2019-10-31] MEDS: InsuLIN REG 1unit/0.01ml Soln (100units/ml) SC SCH ×4 (05:17→23:33)
[2019-10-31 06:22] LABS: Calcium 9.5 mg/dL (8.5-10.1); Potassium 5.3 mmol/L (3.5-5.1)
[2019-10-31] MEDS: PANTOPRAZOLE 40 MG/10 ML VIAL INJ IV SCH (10:00)
[2019-10-31] MEDS: SODIUM ZIRCONIUM CYCL 10 GM PAK GT SCH ×2 (10:57→17:38)
[2019-10-31] MEDS: NOREPINEPHRINE 8 MG/250ML KIT 250 ML IV SCH (11:15)
[2019-10-31] MEDS: levoFLOXacin 500MG 100 ML IV SCH (17:38)
[2019-10-31] MEDS: MEROPENEM 500MG IVPB 50 ML IV SCH (20:58)
[2019-11-01] VITALS (106 sets, daily range): BP systolic 57–180; BP diastolic 24–120
[2019-11-01] MEDS: SODIUM ZIRCONIUM CYCL 10 GM PAK GT SCH (01:30)
[2019-11-01 04:28] LABS: Basophils # (auto) 0.1 10 ^3/uL (0-0.2); Basophils % (auto) 0.7 % (0.0-2.0); Eosinophils # (auto) 0.3 10 ^3/uL (0-0.8); Eosinophils % (auto) 3.7 % (0.0-7.0); Hematocrit 28.3 % (36.0-46.0); Hemoglobin 9.2 g/dL (12.2-16.2); Lymphocytes # (auto) 1.1 10 ^3/uL (0.4-5.4); Lymphocytes % (auto) 12.4 % (10.0-50.0); Mean Corpuscular Hemoglobin 30.3 pg (28.0-32.0); Mean Corpuscular Hgb Conc. 32.5 g/dL (32.0-36.0); Mean Corpuscular Volume 93.1 fL (80.0-100.0); Monocytes # (auto) 0.6 10 ^3/uL (0-1.3); Neutrophils # (auto) 6.7 10 ^3/uL (1.6-8.6); Neutrophils % (auto) 76.2 % (37.0-80.0); Platelet Count (auto) 242 10^3/uL (140-450); Red Blood Cells 3.04 10^6/uL (4.0-5.20); Red Cell Distribution Width 16.1 % (11.8-14.3); White Blood Cell 8.8 10^3/uL (4.4-10.8)
[2019-11-01 04:47] LABS: BUN/Creatinine Ratio 10.4; Calcium 9.3 mg/dL (8.5-10.1); Potassium 5.3 mmol/L (3.5-5.1)
[2019-11-01] MEDS: ACCU-CHEK COMFORT CURVE STRIP VI SCH ×3 (05:52→18:14)
[2019-11-01] MEDS: InsuLIN REG 1unit/0.01ml Soln (100units/ml) SC SCH ×3 (05:52→18:16)
[2019-11-01] MEDS: PANTOPRAZOLE 40 MG/10 ML VIAL INJ IV SCH (09:11)
[2019-11-01] MEDS: NOREPINEPHRINE 8 MG/250ML KIT 250 ML IV SCH (16:58)
[2019-11-01] MEDS: MEROPENEM 500MG IVPB 50 ML IV SCH (22:32)
[2019-11-02] VITALS (93 sets, daily range): BP systolic 101–196; BP diastolic 38–77
[2019-11-02] MEDS: InsuLIN REG 1unit/0.01ml Soln (100units/ml) SC SCH ×4 (00:24→17:56)
[2019-11-02] MEDS: ACCU-CHEK COMFORT CURVE STRIP VI SCH ×4 (00:25→17:55)
[2019-11-02 05:09] LABS: Basophils # (auto) 0 10 ^3/uL (0-0.2); Basophils % (auto) 0.5 % (0.0-2.0); Lymphocytes # (auto) 1.3 10 ^3/uL (0.4-5.4); Monocytes # (auto) 0.7 10 ^3/uL (0-1.3)
[2019-11-02 05:12] LABS: Eosinophils # (auto) 0.4 10 ^3/uL (0-0.8); Eosinophils % (auto) 4.8 % (0.0-7.0); Hemoglobin 8.1 g/dL (12.2-16.2); Lymphocytes % (auto) 14.5 % (10.0-50.0); Mean Corpuscular Hemoglobin 30.1 pg (28.0-32.0); Mean Corpuscular Hgb Conc. 32.3 g/dL (32.0-36.0); Mean Corpuscular Volume 93.2 fL (80.0-100.0); Neutrophils # (auto) 6.3 10 ^3/uL (1.6-8.6); Neutrophils % (auto) 72.2 % (37.0-80.0); Platelet Count (auto) 261 10^3/uL (140-450); Red Blood Cells 2.68 10^6/uL (4.0-5.20); Red Cell Distribution Width 16.3 % (11.8-14.3); White Blood Cell 8.7 10^3/uL (4.4-10.8)
[2019-11-02] MEDS ORDERED: SODIUM CHL 0.9% 1000 ML BAG XX ONE (07:00)
[2019-11-02 08:18] LABS: Albumin 2.3 g/dL (3.4-5.0); Potassium 4.6 mmol/L (3.5-5.1)
[2019-11-02 08:22] LABS: Bilirubin, Total 0.6 mg/dL (0.2-1.0); Total Protein 7.2 g/dL (6.4-8.2)
[2019-11-02 08:25] LABS: BUN/Creatinine Ratio 11.4
[2019-11-02] MEDS: ENOXAPARIN SOD 30 MG/0.3 ML SYRINGE SC SCH (10:00)
[2019-11-02] MEDS: PANTOPRAZOLE 40 MG/10 ML VIAL INJ IV SCH (11:11)
[2019-11-02] MEDS: NOREPINEPHRINE 8 MG/250ML KIT 250 ML IV SCH (11:11)
[2019-11-02] MEDS: levoFLOXacin 500MG 100 ML IV SCH (17:24)
[2019-11-02] MEDS ORDERED: VANCOMYCIN 500 MG in D5W 5% 100 ML IV ONE ×2 (18:00→20:00)
[2019-11-02] MEDS: MEROPENEM 500MG IVPB 50 ML IV SCH (20:18)
[2019-11-02] MEDS ORDERED: EPOETIN ALFA 10,000 UNIT/1 ML VIAL SC ONE (21:00)
[2019-11-02] MEDS: hydrALAZINE HCL 20 MG/ML VL IV PRN (22:10)
[2019-11-03] VITALS (101 sets, daily range): BP systolic 83–188; BP diastolic 35–64
[2019-11-03] MEDS: InsuLIN REG 1unit/0.01ml Soln (100units/ml) SC SCH ×3 (00:26→12:00)
[2019-11-03] MEDS: ACCU-CHEK COMFORT CURVE STRIP VI SCH ×3 (06:22→12:00)
[2019-11-03] MEDS: ENOXAPARIN SOD 30 MG/0.3 ML SYRINGE SC SCH (10:00)
[2019-11-03] MEDS: PANTOPRAZOLE 40 MG/10 ML VIAL INJ IV SCH (10:00)
[2019-11-03] MEDS: NOREPINEPHRINE 8 MG/250ML KIT 250 ML IV SCH (11:22)
[2019-11-03] MEDS: LORazepam 2MG/ML-1ML VIAL IV PRN (18:26)
[2019-11-03] MEDS: MORPHINE SULF INJ 2 MG/ML SYRINGE 1ML IV PRN (20:41)
[2019-11-04] VITALS (44 sets, daily range): BP systolic 70–192; BP diastolic 25–80
[2019-11-04] MEDS: MORPHINE SULF INJ 2 MG/ML SYRINGE 1ML IV PRN (05:55)
[2019-11-04] MEDS: LORazepam 2MG/ML-1ML VIAL IV PRN (06:28)
== END 2019-11-04 19:10 | disposition hospice, home (50) | DRG 853 ==
LOC: EDBD 19:13 → ER 19:13 → TELE 19:14 → DOU IN ICU 10-14 08:51 → ICU WEST 10-16 02:53 → TELE-EAST 11-04 12:27
PROVIDERS: ADMIT Nurse Practitioner; ATTEND Internal Medicine
PROC: 5A1955Z Respiratory Ventilation, Greater than 96 Consecutive Hours (ICD-10-PCS; principal; 2019-10-14)
PROC: 0BH17EZ Insertion of Endotracheal Airway into Trachea, Via Natural or Artificial Opening (ICD-10-PCS; 2019-10-14)
PROC: 5A1D70Z Performance of Urinary Filtration, Intermittent, Less than 6 Hours Per Day (ICD-10-PCS; 2019-10-14)
PROC: 5A1D70Z Performance of Urinary Filtration, Intermittent, Less than 6 Hours Per Day (ICD-10-PCS; 2019-10-16)
PROC: 5A1D70Z Performance of Urinary Filtration, Intermittent, Less than 6 Hours Per Day (ICD-10-PCS; 2019-10-19)
PROC: 5A1D70Z Performance of Urinary Filtration, Intermittent, Less than 6 Hours Per Day (ICD-10-PCS; 2019-10-21)
PROC: 5A1D70Z Performance of Urinary Filtration, Intermittent, Less than 6 Hours Per Day (ICD-10-PCS; 2019-10-23)
PROC: 5A1D70Z Performance of Urinary Filtration, Intermittent, Less than 6 Hours Per Day (ICD-10-PCS; 2019-10-26)
PROC: 02HV33Z Insertion of Infusion Device into Superior Vena Cava, Percutaneous Approach (ICD-10-PCS; 2019-10-28)
PROC: 04HK03Z Insertion of Infusion Device into Right Femoral Artery, Open Approach (ICD-10-PCS; 2019-10-28)
PROC: 5A12012 Performance of Cardiac Output, Single, Manual (ICD-10-PCS; 2019-10-28)
PROC: 5A1D70Z Performance of Urinary Filtration, Intermittent, Less than 6 Hours Per Day (ICD-10-PCS; 2019-10-28)
PROC: 5A02216 Assistance with Cardiac Output using Other Pump, Continuous (ICD-10-PCS; 2019-10-28)
PROC: 5A1D70Z Performance of Urinary Filtration, Intermittent, Less than 6 Hours Per Day (ICD-10-PCS; 2019-10-30)
PROC: 5A1D70Z Performance of Urinary Filtration, Intermittent, Less than 6 Hours Per Day (ICD-10-PCS; 2019-11-02)
DX: A41.9 Sepsis, unspecified organism (principal); I46.9 Cardiac arrest, cause unspecified; R65.21 Severe sepsis with septic shock; I21.A1 Myocardial infarction type 2; N18.6 End stage renal disease; I50.43 Acute on chronic combined systolic (congestive) and diastolic (congestive) heart failure; J96.01 Acute respiratory failure with hypoxia; J69.0 Pneumonitis due to inhalation of food and vomit; J15.6 Pneumonia due to other Gram-negative bacteria; I49.01 Ventricular fibrillation; G92 Toxic encephalopathy; N13.30 Unspecified hydronephrosis; N39.0 Urinary tract infection, site not specified; G93.1 Anoxic brain damage, not elsewhere classified; I38 Endocarditis, valve unspecified; I24.9 Acute ischemic heart disease, unspecified; Z16.12 Extended spectrum beta lactamase (ESBL) resistance; I42.9 Cardiomyopathy, unspecified; N25.81 Secondary hyperparathyroidism of renal origin; I47.2 Ventricular tachycardia; I13.2 Hypertensive heart and chronic kidney disease with heart failure and with stage 5 chronic kidney disease, or end stage renal disease; R41.0 Disorientation, unspecified; E11.65 Type 2 diabetes mellitus with hyperglycemia; E87.5 Hyperkalemia; R50.81 Fever presenting with conditions classified elsewhere; E66.9 Obesity, unspecified; E78.5 Hyperlipidemia, unspecified; E11.22 Type 2 diabetes mellitus with diabetic chronic kidney disease; D63.1 Anemia in chronic kidney disease; E11.51 Type 2 diabetes mellitus with diabetic peripheral angiopathy without gangrene; G52.9 Cranial nerve disorder, unspecified; H57.02 Anisocoria; B96.20 Unspecified Escherichia coli [E. coli] as the cause of diseases classified elsewhere; E78.00 Pure hypercholesterolemia, unspecified; Z51.5 Encounter for palliative care; R59.1 Generalized enlarged lymph nodes; I51.3 Intracardiac thrombosis, not elsewhere classified; Z89.431 Acquired absence of right foot; Z79.899 Other long term (current) drug therapy; Z95.0 Presence of cardiac pacemaker; Z83.3 Family history of diabetes mellitus; Z03.818 Encounter for observation for suspected exposure to other biological agents ruled out; Z79.01 Long term (current) use of anticoagulants; Z79.4 Long term (current) use of insulin
CPT/HCPCS: 31500; 36415; 36600; 70450; 71045; 71275; 74176; 80048; 80053; 80061; 80202; 81001; 82378; 82728; 82805; 82962; 83036; 83540; 83550; 83605; 83615; 83735; 83880; 84100; 84132; 84443; 84484; 85014; 85018; 85025; 85379; 85610; 85730; 86141; 86300; 86301; 86304; 87040; 87070; 87077; 87081; 87086; 87088; 87186; 87205; 87804; 87880; 90935; 93005; 93306; 93312; 94002; 94003; 95819; 96365; 96368; 99152; A4618; C9113; G0378; J0171; J0330; J0461; J0610; J0696; J0885; J1642; J1815; J1956; J2185; J2250; J2543; J7060